=== PATIENT | male | born 1945 | race Two or more races ===

== ENCOUNTER 2022-12-31 07:58 | Day surgery (SDC) | payer OTHER ==
[~2022-12-31] VITALS: Ht 182.9 cm; Wt 100.7 kg
[~2022-12-31 07:58] MED LIST: ATOR40TA52 PO; CHOL20007 PO; DIGO0.12 PO; EZET10TA22 PO; GABA100C9 PO; GLIP10TA9 PO; INSLANTI SC; LEVO150T10 PO; MULT1TAB82 PO; SEMA2INJ SC; SITA100T7 PO; TRIA37.55 PO; WARF6TAB21 PO; [UNRECOGNIZED DRUG - CODE] OR
[2022-12-31] MEDS ORDERED: MIDAZOLAM HCL 2MG/2ML 2ml VIAL (1mg/ml) IV ONE (08:45)
[2022-12-31] MEDS ORDERED: LIDOCAINE VISCOUS 2% 15ML UD MT ONE (08:45)
[2022-12-31] MEDS ORDERED: fentaNYL CITRATE 100 MCG/2 ML VL IV ONE (08:45)
== END 2022-12-31 10:15 | disposition home or self-care (01) ==
LOC: CATH 07:58
PROVIDERS: ATTEND Internal Medicine Cardiovascular Disease
DX: I08.1 Rheumatic disorders of both mitral and tricuspid valves (principal); Z20.822 Contact with and (suspected) exposure to COVID-19
CPT/HCPCS: 93312; J2250; J3010; J7040; U0003; 99152

== ENCOUNTER 2023-08-12 06:49 | Day surgery (SDC) | payer OTHER ==
[~2023-08-12] VITALS: Ht 182.9 cm; Wt 99.8 kg
[2023-08-12] VITALS (7 sets, daily range): BP systolic 100–112; BP diastolic 33–49; PULSE 50–75; RESP 12–19; O2SAT 92–98
[~2023-08-12 06:49] MED LIST changes: +CETI-195 PO; +GABA-1308 PO; -GABA100C9 PO; +MULT-928 PO; -TRIA37.55 PO; +TRIA37.586 PO; +WARF-113 PO; -WARF6TAB21 PO
[2023-08-12] MEDS ORDERED: VERAPAMIL 2.5MG/ML INJ 2ML VIAL IV ONE (07:36)
[2023-08-12] MEDS ORDERED: ANGIOMAX 250 MG VIAL IV ONE (07:36)
[2023-08-12] MEDS ORDERED: fentaNYL CITRATE 100 MCG/2 ML VL ONE (07:36)
[2023-08-12] MEDS ORDERED: MIDAZOLAM HCL 2MG/2ML 2ml VIAL (1mg/ml) ONE (07:36)
[2023-08-12] MEDS ORDERED: SODIUM CHL 0.9% 0 ML ONE (07:37)
[2023-08-12] MEDS ORDERED: HEPARIN SODIUM (PORCINE) 5000 UNITS/ML 1ML VIAL ONE (07:37)
[2023-08-12 08:16] LABS: INR 1.48 (0.9-1.15); Prothrombin Time 15.1 sec (9.3-11.8)
[2023-08-12] MEDS ORDERED: ATROPINE SULF 1 MG/10ml SYR ONE (09:16)
[2023-08-12] MEDS ORDERED: IOHEXOL 350 MG/ML 100ML IJ ONE (09:24)
== END 2023-08-12 12:10 | disposition home or self-care (01) ==
LOC: CATH 06:49
PROVIDERS: ATTEND Internal Medicine Cardiovascular Disease
DX: I25.10 Atherosclerotic heart disease of native coronary artery without angina pectoris (principal); R06.09 Other forms of dyspnea; E11.9 Type 2 diabetes mellitus without complications; E03.9 Hypothyroidism, unspecified; E78.5 Hyperlipidemia, unspecified; I48.91 Unspecified atrial fibrillation; I34.1 Nonrheumatic mitral (valve) prolapse; I34.0 Nonrheumatic mitral (valve) insufficiency; Z79.899 Other long term (current) drug therapy
CPT/HCPCS: 36415; 85610; 93460; C1725; C1757; C1769; C1894; J1644; J2250; J3010; Q9967; 99152